=== PATIENT | male | born 1990 | race Caucasian/White ===

== ENCOUNTER 2018-11-04 05:52 | Emergency (ER) | payer BC, OTHER ==
[2018-11-04 05:59] VITALS: TEMP 98.4
[2018-11-04] MEDS ORDERED: MAG HYDROX/AL HYDROX/SIMETH 30 ML, HYOSCYAMINE ELIXIR 10 ML, CIMETIDINE HCL 300 MG, LID... PO STA ×4 (06:27)
[2018-11-04 06:40] LABS: MCV 82.5 fL (80.0-100.0); RDW 12.8 % (11.5-15.5)
[2018-11-04 06:50] LABS: ALT 82 U/L (21-72); AST 51 U/L (17-59); Albumin 5.3 g/dL (3.5-5.0); Alkaline Phosphatase 90 U/L (38-126); Amylase 54 U/L (30-110); Anion Gap 13 mmol/L; Blood Urea Nitrogen 18 mg/dL (9-20); Calcium 11.1 mg/dL (8.4-10.2); Carbon Dioxide 23 mmol/L (22-30); Chloride 103 mmol/L (98-107); Glucose 92 mg/dL (74-99); Lipase 110 U/L (23-300); Magnesium 2.1 mg/dL (1.6-2.3); Potassium 5.1 mmol/L (3.5-5.1); Sodium 139 mmol/L (137-145); Total Bilirubin 0.7 mg/dL (0.2-1.3); Total Protein 8.5 g/dL (6.3-8.2)
[2018-11-04 06:52] LABS: HCT 51.9 % (39.0-53.0); HGB 17.4 gm/dL (13.0-17.5); MCH 27.6 pg (25.0-35.0); MCHC 33.5 g/dL (31.0-37.0); Mean Platelet Volume 7.8; Platelet Count 341 k/uL (150-450); RBC 6.29 m/uL (4.30-5.90); WBC 12.9 k/uL (3.8-10.6)
--- NOTE | 2018-11-04 07:08 | XR ---
EXAMINATION TYPE: XR chest 2V DATE OF EXAM: 11/04/2018 COMPARISON: Chest x-ray August 18, 2008. HISTORY: Chest pain. TECHNIQUE: Frontal and lateral views of the chest are obtained. FINDINGS: Overlying EKG leads are seen currently. There is no focal air space opacity, pleural effus ion, or pneumothorax seen. The cardiac silhouette size is within normal limits. The osseous struct ures are intact. IMPRESSION: No acute process.
[2018-11-04] MEDS ORDERED: SODIUM CHLORIDE 0.9% 1,000 ML IV ONE (07:27)
[2018-11-04 07:28] LABS: Eosinophils # (M) 0.13 k/uL (0-0.7); Lymphocytes # (M) 1.03 k/uL (1.0-4.8); Monocytes # (M) 1.03 k/uL (0-1.0); Neutrophils # (M) 10.71 k/uL (1.3-7.7); Neutrophils % (M) 83 %; Nucleated Red Blood Cells 0 /100 WBC (0-0); Total Cells Counted 100
[2018-11-04] MEDS ORDERED: KETOROLAC 30 MG/ML 1 ML VIAL IVP STA (07:32)
--- NOTE | 2018-11-04 07:37 | ED ---
General Adult HPI - General Chief complaint: Chest Pain Stated complaint: chest pain Time Seen by Provider: 11/04/18 06:13 Source: patient, family Mode of arrival: ambulatory Limitations: no limitations - History of Present Illness Initial comments: 's patient is 28-year-old man who presents with a constellation of symptoms that started last night. Patient began with diarrhea and states that he has had greater than 6 episodes of this. The diarrhea has been watery. He is not seeing any evidence of blood or dark tarry material. Patient also was feeling he might have some chills. He also has developed some substernal burning chest pain. He states that the pain gets worse when he attempts to drink anything or swallow. Pain is moderate intensity. He has not noted any relieving factors. No anginal type symptoms, including no dyspnea, diaphoresis, vomiting, palpitations, lightheadedness or syncope Onset/Timin -: hour(s) Location: chest Radiation: non-radiation Quality: burning Consistency: constant Improves with: none Worsens with: other (Swallowing) Associated Symptoms: fever/chills, other (Diarrhea) - Related Data Previous Rx's Medication Instructions Recorded Famotidine [Pepcid] 20 mg PO BID #14 tablet 11/04/18 Allergies Allergy/AdvReac Type Severity Reaction Status Date / Time Penicillins Allergy Rash/Hives Verified 11/04/18 05:59 Sulfa (Sulfonamide Allergy Rash/Hives Verified 11/04/18 05:59 Antibiotics) Review of Systems ROS Statement: Those systems with pertinent positive or pertinent negative responses have been documented in the HPI. ROS Other: All systems not noted in ROS Statement are negative. Constitutional: Reports: chills. Denies: fever Respiratory: Denies: cough, dyspnea Cardiovascular: Reports: chest pain. Denies: palpitations, edema, syncope Gastrointestinal: Reports: diarrhea. Denies: abdominal pain, nausea, vomiting, constipation, melena, hematochezia Genitourinary: Denies: dysuria Musculoskeletal: Denies: back pain Skin: Denies: rash Neurological: Denies: headache, weakness, numbness Past Medical History Past Medical History: No Reported History History of Any Multi-Drug Resistant Organisms: None Reported Past Surgical History: No Surgical Hx Reported Additional Past Surgical History / Comment(s): carpal tunnel Past Psychological History: No Psychological Hx Reported Smoking Status: Never smoker Past Alcohol Use History: Occasional Past Drug Use History: None Reported General Exam Limitations: no limitations General appearance: alert, in no apparent distress Head exam: Present: atraumatic, normocephalic Eye exam: Present: normal appearance. Absent: scleral icterus, conjunctival injection ENT exam: Present: normal oropharynx Neck exam: Present: normal inspection Respiratory exam: Present: normal lung sounds bilaterally. Absent: respiratory distress, wheezes, rales, rhonchi, stridor Cardiovascular Exam: Present: regular rate, normal rhythm, normal heart sounds. Absent: systolic murmur, diastolic murmur, rubs, gallop GI/Abdominal exam: Present: soft. Absent: distended, tenderness, guarding, rebound, rigid, mass Extremities exam: Present: normal inspection, normal capillary refill. Absent: pedal edema, calf tenderness Back exam: Present: normal inspection Neurological exam: Present: alert Skin exam: Present: warm, dry, normal color, rash (Patient does have a number of psoriatic plaques.) Course Vital Signs 11/04/18 05:55 Temperature 98.4 F Pulse Rate 72 Respiratory 20 Rate Blood Pressure 148/97 O2 Sat by Pulse 96 Oximetry EKG Findings - EKG Results: EKG: interpreted by CURLY GRAVES, sinus rhythm (Rate 65 bpm), normal axis, normal QRS, normal ST/T, no acute changes Medical Decision Making - Lab Data Result diagrams: 11/04/18 06:10 11/04/18 06:10 Lab Results 11/04/18 11/04/18 11/04/18 Range/Units 06:10 06:10 06:10 WBC 12.9 H (3.8-10.6) k/uL RBC 6.29 H (4.30-5.90) m/uL Hgb 17.4 (13.0-17.5) gm/dL Hct 51.9 (39.0-53.0) % MCV 82.5 (80.0-100.0) fL MCH 27.6 (25.0-35.0) pg MCHC 33.5 (31.0-37.0) g/dL RDW 12.8 (11.5-15.5) % Plt Count 341 (150-450) k/uL Neutrophils % (Manual) 83 % Lymphocytes % (Manual) 8 % Monocytes % (Manual) 8 % Eosinophils % (Manual) 1 % Neutrophils # (Manual) 10.71 H (1.3-7.7) k/uL Lymphocytes # (Manual) 1.03 (1.0-4.8) k/uL Monocytes # (Manual) 1.03 H (0-1.0) k/uL Eosinophils # (Manual) 0.13 (0-0.7) k/uL Nucleated RBCs 0 (0-0) /100 WBC Manual Slide Review Performed Sodium 139 (137-145) mmol/L Potassium 5.1 (3.5-5.1) mmol/L Chloride 103 (98-107) mmol/L Carbon Dioxide 23 (22-30) mmol/L Anion Gap 13 mmol/L BUN 18 (9-20) mg/dL Creatinine 1.03 (0.66-1.25) mg/dL Est GFR (CKD-EPI)AfAm >90 (>60 ml/min/1.73 sqM) Est GFR (CKD-EPI)NonAf >90 (>60 ml/min/1.73 sqM) Glucose 92 (74-99) mg/dL Calcium 11.1 H (8.4-10.2) mg/dL Magnesium 2.1 (1.6-2.3) mg/dL Total Bilirubin 0.7 (0.2-1.3) mg/dL AST 51 (17-59) U/L ALT 82 H (21-72) U/L Alkaline Phosphatase 90 (38-126) U/L Troponin I <0.012 (0.000-0.034) ng/mL Total Protein 8.5 H (6.3-8.2) g/dL Albumin 5.3 H (3.5-5.0) g/dL Amylase 54 (30-110) U/L Lipase 110 (23-300) U/L Disposition Clinical Impression: Esophagitis Disposition: HOME SELF-CARE Condition: Fair Instructions (If sedation given, give patient instructions): Chest Pain (ED), Esophagitis (ED) Prescriptions: Famotidine [Pepcid] 20 mg PO BID #14 tablet Is patient prescribed a controlled substance at d/c from ED?: No Referrals: Michael Murdock MD [Primary Care Provider] - 1-2 days
[2018-11-04 08:32] VITALS: BP 125/91; PULSE 55; RESP 16
== END 2018-11-04 09:15 | disposition home or self-care (01) ==
LOC: EC 05:52
DX: K20.9 Esophagitis, unspecified (principal); L40.0 Psoriasis vulgaris; R19.7 Diarrhea, unspecified; Z88.0 Allergy status to penicillin; Z88.2 Allergy status to sulfonamides
CPT/HCPCS: 36415; 93005; 80053; 82150; 83690; 83735; 84484; 85025; 71046; 99285; 96374; 96361; J1885

== ENCOUNTER 2022-08-27 21:56 | Emergency (ER) | payer BC, OTHER ==
[2022-08-27 22:00] VITALS: RESP 16
[2022-08-27] MEDS ORDERED: KETOROLAC 15 MG/ML 1 ML VIAL IVP STA (22:18)
[2022-08-27] MEDS ORDERED: SODIUM CHLORIDE 0.9% 1,000 ML IV STA (22:18)
[2022-08-27] MEDS ORDERED: FAMOTIDINE 20 MG/2 ML VIAL IV STA (22:18)
--- NOTE | 2022-08-27 22:26 | ED ---
Abdominal Pain HPI - General Chief Complaint: Abdominal Pain Stated Complaint: Abdominal pain Time Seen by Provider: 08/27/22 22:02 Source: patient, family, RN notes reviewed Mode of arrival: ambulatory Limitations: no limitations - History of Present Illness Initial Comments: This is a 32-year-old male who presents to the emergency department for epigas tric pain. States that this started around 1 PM this evening, shortly after he ate. While he is having severe pain, he states that he still feels full. Denies any associated nausea or vomiting. He has chronic diarrhea, which has not changed with the development of the pain. States that he has a history of stomach ulcers, however it has been several years since this last occurred, and this pain is more severe. He took Tylenol and Mylanta earlier today with no relief. Denies any fevers, chills, sore throat, cough, dyspnea, chest pain, palpitations, nausea, vomiting, back pain, or headaches. MD Complaint: abdominal pain Location: epigastric Worsens With: eating Associated Symptoms: diarrhea - Related Data Home Medications Medication Instructions Recorded Confirmed Clobetasol Propionate [Clobex .05% 1 applic TOPICAL DAILY 11/04/18 11/04/18 Shampoo] Mag Hydrox/Al Hydrox/Simeth 30 ml PO Q6H 11/04/18 11/04/18 [Maalox] Omeprazole 20 mg PO DAILY 11/04/18 11/04/18 Previous Rx's Medication Instructions Recorded Hyoscyamine Sulfate [Levsin] 0.125 mg PO Q4H PRN #15 tab 08/28/22 Pantoprazole Sodium 20 mg PO DAILY #14 tab 08/28/22 Allergies Allergy/AdvReac Type Severity Reaction Status Date / Time Penicillins Allergy Rash/Hives Verified 08/27/22 22:00 Sulfa (Sulfonamide Allergy Rash/Hives Verified 08/27/22 22:00 Antibiotics) Review of Systems ROS Statement: Those systems with pertinent positive or pertinent negative responses have been documented in the HPI. ROS Other: All systems not noted in ROS Statement are negative. Past Medical History Past Medical History: No Reported History History of Any Multi-Drug Resistant Organisms: None Reported Past Surgical History: No Surgical Hx Reported Additional Past Surgical History / Comment(s): carpal tunnel Past Psychological History: No Psychological Hx Reported Smoking Status: Never smoker Past Alcohol Use History: None Reported Past Drug Use History: None Reported General Exam Limitations: no limitations General appearance: alert, in no apparent distress Head exam: Present: atraumatic, normocephalic, normal inspection Respiratory exam: Present: normal lung sounds bilaterally. Absent: respiratory distress, wheezes, rales, rhonchi, stridor Cardiovascular Exam: Present: regular rate, normal rhythm, normal heart sounds. Absent: systolic murmur, diastolic murmur, rubs, gallop, clicks GI/Abdominal exam: Present: soft, tenderness (Epigastric), normal bowel sounds. Absent: distended Neurological exam: Present: alert, oriented X3, CN II-XII intact Psychiatric exam: Present: normal affect, normal mood Skin exam: Present: warm, dry, intact, normal color. Absent: rash Course Vital Signs 08/27/22 08/28/22 08/28/22 21:58 00:17 02:02 Temperature 98.2 F 98.7 F 98.3 F Pulse Rate 81 78 67 Respiratory 16 16 16 Rate Blood Pressure 184/107 150/103 129/97 O2 Sat by Pulse 96 98 96 Oximetry Medical Decision Making - Medical Decision Making This is a 32-year-old male who presents to the emergency department for abdominal pain. Was pt. sent in by a medical professional or institution? @ -No Did you speak to anyone other than the patient for history? @ -His mother Did you review nursing and triage notes? @ -Yes, and I agree, it is accurate with regards to the patient's symptoms. Were old charts reviewed? @ -No Differential Diagnosis? @ -Differential Abdominal Pain Men: Appendicitis, cholecystitis, diverticulosis, ischemic bowel, pancreatitis, hepatitis, UTI, gastroenteritis, AAA, incarcerated hernia, bowel obstruction, constipation, inflammatory bowel, hepatitis, peptic ulcer disease, splenic infarction, perforated viscus, testicular torsion, this is not meant to be an all-inclusive list CT interpreted by me (1pt min.)? @ -Computed tomography scan of the abdomen and pelvis obtained. My interpretation identifies no bowel wall thickening, however there is evidence of diverticulosis. U/S interpreted by me (1pt. min.)? @ -Gallbladder ultrasound obtained, my interpretation identifies no evidence of gallstones or gallbladder wall thickening. What testing was considered but not performed? (CT, X-rays, U/S, labs)? Why? @ -None What meds were considered but not given? Why? @ -None Did you discuss the management of the patient with other professionals? @ -No Did you reconcile home meds? @ -No Was smoking cessation discussed for >3mins.? @ -No Was critical care preformed (if so, how long)? @ -No Were there social determinants of health that impacted care today? How? (Homelessness, low income, unemployed, alcoholism, drug addiction, transportation, low edu. Level, literacy, decrease access to med. care, nursing home, rehab)? @ -No Was there de-escalation of care discussed even if they declined? (Discuss DNR or withdrawal of care, Hospice)? @ -No What co-morbidities impacted this encounter? (DM, HTN, Smoking, COPD, CAD, C ancer, CVA, Hep., AIDS, mental health diagnosis, sleep apnea, morbid obesity)? @ -None Was patient admitted / discharged? @ -Discharged. Lab work reveals leukocytosis and slightly elevated liver enzymes. He had little to no relief in symptoms with Pepcid and Toradol. Gallbladder ultrasound revealed no acute findings. Advised that while there were no structural irregularities on the ultrasound, this does not rule out the possibility of biliary dyskinesia, which would need to be evaluated on an outpatient basis with a HIDA scan. Given the leukocytosis and persistent pain, computed tomography scan of the abdomen and pelvis was obtained. He was found to have diverticulosis without any acute changes. He was subsequently given a GI cocktail, which was much more beneficial for his symptoms. He was given information for follow-up with Dr. Wang, gastroenterology. Prescription for Protonix and Levsin provided with dosing instructions reviewed. Advised [id number] Maalox with the Levsin for a similar effect to the GI cocktail administered here. He is also instructed to remain well-hydrated and increase his fiber intake. Undiagnosed new problem with uncertain prognosis? @ -Epigastric pain Drug Therapy requiring intensive monitoring for toxicity (Heparin, Nitro, Insulin, Cardizem)? @ -None Were any procedures done? @ -None Diagnosis/symptom? @ -Epigastric pain Acute, or Chronic, or Acute on Chronic? @ -Acute Uncomplicated (without systemic symptoms) or Complicated (systemic symptoms)? @ -Complicated Side effects of treatment? @ -None Exacerbation, Progression, or Severe Exacerbation] @ -Not applicable Poses a threat to life or bodily function? @ -Yes, the pain is impacting his ability to function. Return precautions reviewed in depth, the patient is instructed to return to the emergency department with any new, worsening, or concerning symptoms. Patient verbalized understanding. This case was discussed in detail with the attending ED physician, Dr. Rankin. Presentation, findings, and treatment plan discussed in detail as well. - Lab Data Result diagrams: 08/27/22 22:27 08/27/22 22: Lab Results 08/27/22 08/27/22 08/27/22 Range/Units 22: 22:: WBC 16.5 H (3.8-10.6) k/uL RBC 5.65 (4.30-5.90) m/uL Hgb 16.9 (13.0-17.5) gm/dL Hct 47.6 (39.0-53.0) % MCV 84.1 (80.0-100.0) fL MCH 29.8 (25.0-35.0) pg MCHC 35.4 (31.0-37.0) g/dL RDW 13.0 (11.5-15.5) % Plt Count 297 (150-450) k/uL MPV 8.5 Neutrophils % 62 % Lymphocytes % 14 % Monocytes % 4 % Eosinophils % 19 % Basophils % 0 % Neutrophils # 10.2 H (1.3-7.7) k/uL Lymphocytes # 2.3 (1.0-4.8) k/uL Monocytes # 0.6 (0-1.0) k/uL Eosinophils # 3.1 H (0-0.7) k/uL Basophils # 0.1 (0-0.2) k/uL Sodium 140 (137-145) mmol/L Potassium 4.3 (3.5-5.1) mmol/L Chloride 104 (98-107) mmol/L Carbon Dioxide 22 (22-30) mmol/L Anion Gap 14 mmol/L BUN 16 (9-20) mg/dL Creatinine 0.96 (0.66-1.25) mg/dL Est GFR (CKD-EPI)AfAm >90 (>60 ml/min/1.73 sqM) Est GFR (CKD-EPI)NonAf >90 (>60 ml/min/1.73 sqM) Glucose 116 H (74-99) mg/dL Plasma Lactic Acid Royce 1.3 (0.7-2.0) mmol/L Calcium 9.5 (8.4-10.2) mg/dL Total Bilirubin 0.6 (0.2-1.3) mg/dL AST 66 H (17-59) U/L ALT 100 H (4-49) U/L Alkaline Phosphatase 105 (38-126) U/L Total Protein 8.2 (6.3-8.2) g/dL Albumin 4.8 (3.5-5.0) g/dL Amylase 48 (30-110) U/L Lipase 96 (23-300) U/L - Radiology Data Radiology results: report reviewed, image reviewed Disposition Clinical Impression: Diverticulosis, Epigastric pain Disposition: HOME SELF-CARE Instructions (If sedation given, give patient instructions): Diverticulosis (ED) Additional Instructions: Return to the emergency department with any new, worsening, or concerning symp toms. Take the Protonix daily, be sure to take this at least 30 minutes before eating or taking any other medication. You can take the Levsin up to every 4 hours as needed for abdominal pain. This and the Maalox is what you were given in liquid form to help your abdominal pain. The Maalox can be purchased over the counter. Increase your fiber and fluid intake. Contact Dr. Wang as listed below for a follow-up appointment. Dr. Rodriguez's office as listed below is a great option for a local primary care provider. Prescriptions: Hyoscyamine Sulfate [Levsin] 0.125 mg PO Q4H PRN #15 tab PRN Reason: Pain Pantoprazole Sodium 20 mg PO DAILY #14 tab Is patient prescribed a controlled substance at d/c from ED?: No Referrals: None,Stated [Primary Care Provider] - 1-2 days Yola Wang MD [STAFF PHYSICIAN] - 1-2 days Tra Rodriguez MD [STAFF PHYSICIAN] - 1-2 days
[2022-08-27 22:40] LABS: Basophils # (A) 0.1 k/uL (0-0.2); Basophils % (A) 0 %; Eosinophils # (A) 3.1 k/uL (0-0.7); Eosinophils % (A) 19 %; HCT 47.6 % (39.0-53.0); HGB 16.9 gm/dL (13.0-17.5); Lymphocytes # (A) 2.3 k/uL (1.0-4.8); Lymphocytes % (A) 14 %; MCH 29.8 pg (25.0-35.0); MCHC 35.4 g/dL (31.0-37.0); MCV 84.1 fL (80.0-100.0); Mean Platelet Volume 8.5; Monocytes # (A) 0.6 k/uL (0-1.0); Monocytes % (A) 4 %; Neutrophils # (A) 10.2 k/uL (1.3-7.7); Neutrophils % (A) 62 %; Platelet Count 297 k/uL (150-450); RBC 5.65 m/uL (4.30-5.90); WBC 16.5 k/uL (3.8-10.6)
[2022-08-27 22:54] LABS: ALT 100 U/L (4-49); AST 66 U/L (17-59); African American GFR (CKD) >90 (>60 ml/min/1.73 sqM); Albumin 4.8 g/dL (3.5-5.0); Alkaline Phosphatase 105 U/L (38-126); Amylase 48 U/L (30-110); Anion Gap 14 mmol/L; Blood Urea Nitrogen 16 mg/dL (9-20); Calcium 9.5 mg/dL (8.4-10.2); Carbon Dioxide 22 mmol/L (22-30); Chloride 104 mmol/L (98-107); Glucose 116 mg/dL (74-99); Lipase 96 U/L (23-300); Non-African American GFR(CKD) >90 (>60 ml/min/1.73 sqM); Potassium 4.3 mmol/L (3.5-5.1); Sodium 140 mmol/L (137-145); Total Bilirubin 0.6 mg/dL (0.2-1.3); Total Protein 8.2 g/dL (6.3-8.2)
--- NOTE | 2022-08-27 23:45 | US ---
EXAMINATION TYPE: US gallbladder DATE OF EXAM: 08/27/2022 COMPARISON: NONE CLINICAL HISTORY: Epigastric pain. epigastric pain for 10 hrs after eating at [employer] buffet TECHNIQUE: Multiple sonographic images of the right upper quadrant are obtained. FINDINGS: EXAM MEASUREMENTS: Liver Length: 16.3 cm Gallbladder Wall: 0.2 cm CBD: 0.6 cm Right Kidney: 10.3 x 4.1 x 4.6 cm MAIL COURIER NOTES:bowel gas limits exam Pancreas: portion seen appears wnl Liver: focal fatty sparring seen near kassie hepatis Gallbladder: wnl Evidence for sonographic Talley's sign: no CBD: wnl Right Kidney: wnl IMPRESSION: Negative exam. No gallstones or dilated ducts.
[2022-08-28] MEDS ORDERED: MAG HYDROX/AL HYDROX/SIMETH 30 ML, HYOSCYAMINE ELIXIR 10 ML, LIDOCAINE VISCOUS 2% 10 ML PO STA ×3
--- NOTE | 2022-08-28 01:25 | CT ---
EXAMINATION TYPE: CT abdomen pelvis w con DATE OF EXAM: 08/28/2022 COMPARISON: None HISTORY: EPIGASTRIC PAIN CT DLP: 1431.3 mGycm Automated exposure control for dose reduction was used. CONTRAST: Performed with IV Contrast, patient injected with 100 mL of Isovue 300. Images obtained from the diaphragm to the floor the pelvis with the IV contrast. Lung bases are clear. No pleural effusion. Heart size is normal. No pericardial effusion. Liver spleen stomach pancreas gallbladder appear intact. The bile ducts are not dilated. There is no adrenal mass. Kidneys show satisfactory contrast opacification. No hydronephrosis. Ureter s are not dilated. No retroperitoneal adenopathy. There is prostatic calcification. No inguinal herni a. There are numerous sigmoid diverticula. No diverticulitis. Appendix is medial and appears normal. No free fluid in the pelvis. No pelvic mass. No mesenteric edema. No ascites or free air. No sign of a bowel obstruction. The lumbar vertebrae hav e normal alignment. Posterior elements are intact. No compression fracture. Bony pelvis is intact. Th e hip joints are intact. IMPRESSION: Moderate sigmoid diverticulosis in this relatively young patient. No diverticulitis. Normal appendix.
[2022-08-28 02:04] VITALS: BP 129/97; PULSE 67; TEMP 98.3
== END 2022-08-28 02:04 | disposition home or self-care (01) ==
LOC: EC 21:56
DX: K57.90 Diverticulosis of intestine, part unspecified, without perforation or abscess without bleeding (principal); Z88.0 Allergy status to penicillin; Z88.2 Allergy status to sulfonamides
CPT/HCPCS: 36415; 80053; 82150; 83605; 83690; 85025; 76705; 74177; 99284; 96374; 96375; 96361 ×2; J1885; Q9967

== ENCOUNTER → 2024-05-01 | Outpatient (CLI) | payer BC ==
[2024-05-02 02:40] LABS: Basophils # (A) 0.12 X 10*3/uL (0.00-0.10); Basophils % (A) 1.1 %; Eosinophils # (A) 0.59 X 10*3/uL (0.04-0.35); Eosinophils % (A) 5.5 %; HGB 16.2 g/dL (13.0-17.0); Lymphocytes % (A) 20.7 %; MCH 29.3 pg (27.0-32.0); MCHC 33.1 g/dL (32.0-37.0); MCV 88.6 FL (80.0-97.0); Mean Platelet Volume 10.8 FL (9.5-12.2); Monocytes # (A) 0.66 X 10*3/uL (0.20-1.00); Monocytes % (A) 6.2 %; NRBC Per 100 WBC 0 X 10*3/uL (0.00-0.01); Neutrophils % (A) 65.8 %; Platelet Count 322 X 10*3/uL (140-440); RBC 5.53 X 10*6/uL (4.40-5.60); RDW 12.3 % (11.5-14.5); WBC 10.64 X 10*3/uL (4.50-10.00)
[2024-05-02 03:35] LABS: ALT 202 U/L (10-49); AST 173 U/L (14-35)
[2024-05-02 03:53] LABS: Hepatitis B Surface Antigen Nonreactive (Nonreactive); Hepatitis C IgG Antibody Nonreactive (Nonreactive)
[2024-05-02 04:54] LABS: Hepatitis B Surface AB- Quant 11.8 mIU/mL
== END | disposition home or self-care (01) ==
LOC: LABWHC1 15:56
PROVIDERS: ATTEND Nurse Practitioner
DX: L40.0 Psoriasis vulgaris
CPT/HCPCS: 36415; 82565; 84450; 84460; 85025; 86480; 86704; 86706; 86803; 87340